=== PATIENT | male | born 1990 ===

== ENCOUNTER 2020-12-30 04:42 | Inpatient (IN) | payer OTHER ==
[2020-12-30] MEDS ORDERED: FAMOTIDINE 20 MG/2 ML INJ IV ONE (05:27)
[2020-12-30] MEDS ORDERED: SODIUM CHLORIDE 0.9% 1000 ML 1,000 ML IV ONE (05:27)
[2020-12-30] MEDS ORDERED: MORPHINE 4 MG/1 ML INJ IV ONE (05:27)
[2020-12-30] MEDS ORDERED: ONDANSETRON 4 MG/2 ML INJ IV ONE (05:27)
[2020-12-30 05:48] LABS: Basophils # (Auto) 0.1 K/mm3 (0.0-0.1); Basophils % (Auto) 0.5 % (0.0-1.8); Eosinophils # (Auto) 0.1 K/mm3 (0.0-0.4); Eosinophils % (Auto) 0.9 % (0.0-4.3); Hematocrit 45.2 % (35.5-45.6); Hemoglobin 15.3 gm/dl (11.8-15.2); Lymphocytes # (Auto) 3.1 K/mm3 (1.2-5.4); Lymphocytes % (Auto) 24.1 % (13.4-35.0); Mean Corpuscular HGB Conc 34 % (32-34); Mean Corpuscular Volume 93 fl (84-94); Monocytes % (Auto) 7.9 % (0.0-7.3); Platelet Count 286 K/mm3 (140-440); Red Blood Count 4.87 M/mm3 (3.65-5.03); Red Cell Distribution Width 13.5 % (13.2-15.2)
[2020-12-30 05:59] LABS: Alanine Aminotransferase 23 units/L (7-56); Albumin 4.3 g/dL (3.9-5); BUN/Creatinine Ratio 12; Blood Urea Nitrogen 12 mg/dL (9-20); Calcium 9.1 mg/dL (8.4-10.2); Hemolysis Index 14
--- NOTE | 2020-12-30 06:11 | Emergency Department Report ---
<SANDRAWILSON MUSE - Last Filed: 12/30/20 07:07> ED Abdominal Pain HPI - General Chief Complaint: Abdominal Pain Stated Complaint: RIGHT SIDE PAIN Source: patient Mode of arrival: Ambulatory Limitations: No Limitations - History of Present Illness Initial Comments: Patient is a 30-year-old male with past medical history of GERD who presents to the ED with complaint of acute onset persistent severe right upper quadrant pain with intractable nausea and vomiting for the last 2 days. Patient states that in the last 6 hours, the pain has been constant, persistent and severe and that food appears to make the pain worse. Patient states that in the last 6 hours he has had 2 episodes of nausea and vomiting the last time which was while in the ED. Patient denies fever, chills, diarrhea, dysuria, urinary frequency and urgency, cough, hematemesis, hematochezia, sore throat, hematuria, dysuria, testicular pain, urinary frequency and urgency, chest pain or shortness of breath or headache. MD Complaint: abdominal pain, other -: Sudden (Nausea and vomiting), days(s) (2) Location: RUQ Radiation: RUQ Migration to: no migration Severity: severe Severity scale (0 -10): 10 Quality: cramping, aching, sharp Consistency: constant Improves With: nothing Worsens With: eating, vomiting, movement Associated Symptoms: denies other symptoms, nausea, vomiting, anorexia. denies: diarrhea, fever, chills, constipation, dysuria, hematemesis, hematochezia, me leslie, hematuria - Related Data Allergies Allergy/AdvReac Type Severity Reaction Status Date / Time No Known Allergies Allergy Unverified 12/30/20 04:52 ED Review of Systems Constitutional: denies: chills, fever Eyes: denies: eye pain, eye discharge, vision change ENT: denies: ear pain, throat pain Respiratory: denies: cough, shortness of breath, wheezing Cardiovascular: denies: chest pain, palpitations Endocrine: no symptoms reported Gastrointestinal: abdominal pain (RUQ Abdominal pain), nausea, vomiting. denies: diarrhea Genitourinary: denies: urgency, dysuria Musculoskeletal: denies: back pain, joint swelling, arthralgia Skin: denies: rash, lesions Neurological: denies: headache, weakness, paresthesias Psychiatric: denies: anxiety, depression Hematological/Lymphatic: denies: easy bleeding, easy bruising ED Past Medical Hx - Past Medical History Previous Medical History?: No - Surgical History Past Surgical History?: No - Social History Smoking Status: Never Smoker Substance Use Type: Alcohol ED Physical Exam - General Limitations: No Limitations General appearance: alert, in no apparent distress - Head Head exam: Present: atraumatic, normocephalic, normal inspection - Eye Eye exam: Present: normal appearance, PERRL, EOMI Pupils: Present: normal accommodation - ENT ENT exam: Present: normal exam, normal orophraynx, mucous membranes moist, TM's normal bilaterally, normal external ear exam - Neck Neck exam: Present: normal inspection, full ROM - Respiratory Respiratory exam: Present: normal lung sounds bilaterally. Absent: respiratory distress, wheezes, rales, rhonchi, chest wall tenderness, accessory muscle use, prolonged expiratory - Cardiovascular Cardiovascular Exam: Present: normal rhythm, bradycardia, normal heart sounds. Absent: systolic murmur, diastolic murmur, rubs, gallop - GI/Abdominal GI/Abdominal exam: Present: soft, tenderness (Palpable right upper quadrant tenderness with a positive Liu sign), guarding, rebound, normal bowel sounds. Absent: hyperactive bowel sounds, hypoactive bowel sounds - Extremities Exam Extremities exam: Present: normal inspection, full ROM, normal capillary refill - Back Exam Back exam: Present: normal inspection, full ROM. Absent: tenderness, CVA tenderness (R), CVA tenderness (L), muscle spasm, paraspinal tenderness, vertebral tenderness - Neurological Exam Neurological exam: Present: alert, oriented X3, CN II-XII intact, normal gait, reflexes normal - Psychiatric Psychiatric exam: Present: normal affect, normal mood - Skin Skin exam: Present: warm, dry, intact, normal color. Absent: rash ED Medical Decision Making - Lab Data Result diagrams: 12/30/20 04:56 12/30/20 04:56 - Radiology Data Radiology results: report reviewed, image reviewed - Medical Decision Making This is a 30-year-old male with past medical history of GERD who presents to the ED with complaint of acute onset persistent severe right upper quadrant pain with intractable nausea and vomiting for the last 2 days. Patient states that in the last 6 hours, the pain has been constant, persistent and severe and that food appears to make the pain worse. Patient states that in the last 6 hours he has had 2 episodes of nausea and vomiting the last time which was while in the ED. in the ED, patient is alert and oriented x3 and is not in any distress. Patient was treated in the ED for pain and also given antacids and antiemetics as well as normal saline 1 L IV bolus x1. Lab test results were reviewed and showed acute leukocytosis of 12,700. The rest of the lab test results were nonactionable. The gallbladder ultrasound and abdomen pelvis CT scan with contrast reports are pending. Patient is hemodynamically stable at this time. Patient care was transferred to Ms. Jose Ramon ARTEAGA at shift change at 0700 hours. She shall review all imaging reports and disposition the patient accordingly. - Differential Diagnosis Gallstones; cholecystitis; GERD; kidney stones; UTI; gastritis; pancreatiti ED Disposition Clinical Impression: Cholecystitis with cholelithiasis Qualifiers: Cholelithiasis location: gallbladder Cholecystitis acuity: acute Biliary obstruction: without biliary obstruction Qualified Code(s): K80.00 - Calculus of gallbladder with acute cholecystitis without obstruction Disposition: OP ADMIT IP TO THIS HOSP Is pt being admited?: No Does the pt Need Aspirin: No Condition: Stable Referrals: PRIMARY CARE, [Primary Care Provider] - 3-5 Days <JOSE RAMON BOYD - Last Filed: 12/30/20 09:23> ED Review of Systems ROS: Stated complaint: RIGHT SIDE PAIN Other details as noted in HPI ED Course Vital Signs 12/30/20 12/30/20 12/30/20 04:53 05:00 05:48 Temperature 98.2 F Pulse Rate 54 L Respiratory 18 20 Rate Blood Pressure 141/81 [Left] O2 Sat by Pulse 96 Oximetry 12/30/20 07:35 Temperature Pulse Rate Respiratory 16 Rate Blood Pressure [Left] O2 Sat by Pulse Oximetry - Reevaluation(s) Reevaluation #1: 12/30/20 08:15 Patient reports abdominal pain he is in no acute distress 4 mg of morphine ordered. CT results pending Reevaluation #2: 12/30/20 09:00 General surgeon on-call is called and notified of patient results. Dr. Tom mckenna request patient to be admitted to medicine and that she will be in to see patient later today she also suggest patient be started on IV antibiotics. Reevaluation #3: 12/30/20 09:18 Dr. Ortega called and notified of of patient patient to be admitted by Dr. Ortega to Dr. Sarkar service ED Medical Decision Making - Lab Data Result diagrams: 12/30/20 04:56 12/30/20 04:56 - Radiology Data CT ABDOMEN AND PELVIS WITH CONTRAST INDICATION / CLINICAL INFORMATION: Right upper quadrant abdominal pain for 2 days. TECHNIQUE: Axial CT images were obtained through the abdomen and pelvis following the administration of intravenous contrast. All CT scans at this location are performed using CT dose reduction for ALARA by means of automated exposure control. COMPARISON: Right upper quadrant ultrasound from the same day. FINDINGS: LOWER CHEST: No significant abnormality. LIVER: Mild periportal edema. No focal hepatic lesion. GALLBLADDER: There is cholelithiasis with moderately thickened gallbladder wall trace pericholecystic inflammatory change. PANCREAS: No significant abnormality. SPLEEN: No significant abnormality. ADRENALS: No significant abnormality. KIDNEYS / URETERS: No significant abnormality. URINARY BLADDER: No significant abnormality. REPRODUCTIVE ORGANS: No significant abnormality. STOMACH / SMALL BOWEL: No significant abnormality. COLON: No significant abnormality. APPENDIX: No significant abnormality. PERITONEUM: No free fluid. No free air. No fluid collection. LYMPH NODES: No significant adenopathy. AORTA / ARTERIES: No significant abnormality. IVC / VEINS: No significant abnormality. SKELETAL SYSTEM: No significant abnormality. ADDITIONAL FINDINGS: None. IMPRESSION: 1. Cholelithiasis with gallbladder wall thickening is suspicious for cholecystitis. 2. Mild periportal edema may be related to aggressive hydration. - Medical Decision Making CT results shows cholelithiasis with gallbladder wall thickening suspicious for cholecystitis this. I discussed findings with general surgeon Dr. Purvis patient is to be admitted to the medicine service and Dr. Purvis will be in to see patient today. I also spoke to Dr. Viveros patient will be admitted to medicine service Dr. Sarkar. Patient prescribed IV Zosyn. Plan of care discus sed with patient he agrees with being admitted. Patient is currently in no acute distress Critical care attestation.: If time is entered above; I have spent that time in minutes in the direct care of this critically ill patient, excluding procedure time. ED Disposition Is pt being admited?: Yes Does the pt Need Aspirin: No Time of Disposition: 09:23
[2020-12-30 06:27] LABS: Amorphous Crystals,Urine 2+; Bacteria,Urine 1+ /HPF (Negative); Bilirubin,Urine NEG (Negative); Blood,Urine NEG (Negative); Color,Urine Yellow (Yellow); Urobilinogen,Urine < 2.0 mg/dL (<2.0)
--- NOTE | 2020-12-30 07:17 | Ultrasound Report ---
US abdomen limited INDICATION / CLINICAL INFORMATION: RUQ Pain. COMPARISON: None available. FINDINGS: Liver is mildly enlarged, and echogenicity is slightly increased, suggesting fatty infiltration. Gall bladder contains a single large stone, and the gallbladder wall is slightly thickened. Common duct is normal in size. IMPRESSION: 1. Cholelithiasis with thickened gallbladder wall, suggesting cholecystitis. 2. Probable hepatic steatosis. Signer Name: Chirstiano Gallagher MD Signed: 12/30/2020 7:13 AM Workstation Name: [id number]
[2020-12-30] MEDS ORDERED: MORPHINE 4 MG/1 ML INJ IM ONE (07:59)
--- NOTE | 2020-12-30 08:09 | Cat Scan Report ---
CT ABDOMEN AND PELVIS WITH CONTRAST INDICATION / CLINICAL INFORMATION: Right upper quadrant abdominal pain for 2 days. TECHNIQUE: Axial CT images were obtained through the abdomen and pelvis following the administration of intraven ous contrast. All CT scans at this location are performed using CT dose reduction for ALARA by means of automated exposure control. COMPARISON: Right upper quadrant ultrasound from the same day. FINDINGS: LOWER CHEST: No significant abnormality. LIVER: Mild periportal edema. No focal hepatic lesion. GALLBLADDER: There is cholelithiasis with moderately thickened gallbladder wall trace pericholecystic inflammatory change. PANCREAS: No significant abnormality. SPLEEN: No significant abnormality. ADRENALS: No significant abnormality. KIDNEYS / URETERS: No significant abnormality. URINARY BLADDER: No significant abnormality. REPRODUCTIVE ORGANS: No significant abnormality. STOMACH / SMALL BOWEL: No significant abnormality. COLON: No significant abnormality. APPENDIX: No significant abnormality. PERITONEUM: No free fluid. No free air. No fluid collection. LYMPH NODES: No significant adenopathy. AORTA / ARTERIES: No significant abnormality. IVC / VEINS: No significant abnormality. SKELETAL SYSTEM: No significant abnormality. ADDITIONAL FINDINGS: None. IMPRESSION: 1. Cholelithiasis with gallbladder wall thickening is suspicious for cholecystitis. 2. Mild periportal edema may be related to aggressive hydration. Signer Name: Benny Giron MD Signed: 12/30/2020 8:04 AM Workstation Name: [id number]
[2020-12-30] MEDS ORDERED: PIPERACILLIN/TAZOBACTAM 3.375 3.375 GM/50 ML BAG IV ONE (09:14)
[2020-12-30] MEDS ORDERED: MORPHINE 2 MG/1 ML INJ IV PRN (11:39)
[2020-12-30] MEDS ORDERED: ONDANSETRON 4 MG/2 ML INJ IV PRN (11:39)
--- NOTE | 2020-12-30 11:41 | History and Physical Report ---
History of Present Illness Date of examination: 12/30/20 Date of admission: 12/30/20 09:24 Chief complaint: Right upper quadrant pain History of present illness: 30-year-old with no significant past medical history presented to the emergency department with complaints of right upper quadrant pain that started yesterday. He said pinching pain, progressively getting worse and become 10 out of 10 in intensity, with no radiation. He has one episode of vomiting but no nausea. Denied any fever or chills. Patient said he drinks alcohol heavily on the weekends. Last drink was yesterday. Patient denied any similar abdominal pain before. In the emergency department patient had leukocytosis, vital signs were stable. CT abdomen and pelvis was done and suggestive of cholelithiasis with cholecystitis. Patient was placed on IV Zosyn and general surgery Dr. Purvis was consulted and she will see the patient today. Patient admitted to surgical floor for observation. REVIEW OF SYSTEMS: GENERAL: no weight change, no fatigue, no fever HEAD: no head ache EYES: no blurry vision, no acute visual loss EARS: no hearing loss, no discharge, no earache NOSE: no stuffiness, no sneezing, no discharge MOUTH, THROAT AND NECK: no bleeding gums, no sore throat, no swollen neck CARDIAC: no palpitations, no dyspnea on exertion, no orthopnea, no PND, no edema, no chest pain RESPIRATORY: no shortness of breath, no wheeze, no cough, no sputum, no hemoptysis, no asthma GI: no decreased appetite, no nausea, no vomiting, no dysphagia, no diarrhea, no constipation, no abdominal pain URINARY: No urgency, hematuria, dysuria or frequency. MUSCULOSKELETAL: no muscle weakness, no pain, no joint stiffness NEUROLOGIC: no loss of sensation/numbness, no tingling, no tremors, no weakness/paralysis HEMATOLOGIC: no anemia, no easy bruising SKIN: no rashes ENDOCRINE: no heat/cold intolerance, no polyuria, no polydipsia, no thyroid problems, no diabetes PSYCHIATRIC: no anxiety, no depression, no suicidal ideations Past History Past Medical History: No medical history, other (Alcohol abuse) Past Surgical History: No surgical history Social history: smoking (Smokes cigarettes half pack per day and smokes weed), alcohol abuse (He said he drinks hard liquor and beer on the weekends), full code. denies: prescription drug abuse, IV drug use Family history: no significant family history Medications and Allergies Allergies Allergy/AdvReac Type Severity Reaction Status Date / Time No Known Allergies Allergy Unverified 12/30/20 04:52 Active Meds: Active Medications Piperacillin Sod/Tazobactam Sod (Zosyn/Ns 3.375gm/50ml) 3.375 gm in 50 mls @ 100 mls/hr IV Q8H LUBNA; Protocol Morphine Sulfate (Morphine 2 Mg/1 Ml Inj) 2 mg IV Q4H PRN PRN Reason: Pain, Moderate (4-6) Ondansetron HCl (Ondansetron 4 Mg/2 Ml Inj) 4 mg IV Q6H PRN PRN Reason: N/V unrelieved by Reglan Exam - Physical Exam Narrative exam: Not in cardiopulmonary distress. The patient appeared well nourished and normally developed. Vital signs as documented. Head exam is unremarkable. No scleral icterus . Neck is without jugular venous distension, thyromegaly, or carotid bruits. Lungs are clear to auscultation. Cardiac exam reveals regular rate and Rhythm. Abdominal exam reveals right upper quadrant tenderness. Extremities are nonedematous and both femoral and pedal pulses are normal. ANIMAL HEALTH TECHNICIAN: Alert and oriented 3. No focal weakness. - Constitutional Vitals: Temp Pulse Resp BP Pulse Ox 97.5 F L 55 L 16 144/87 100 12/30/20 10:27 12/30/20 10:27 12/30/20 10:27 12/30/20 10:27 12/30/20 10:27 Results - Labs CBC & Chem 7: 12/30/20 04:56 12/30/20 04:56 Labs: Laboratory Last Values WBC 12.7 K/mm3 (4.5-11.0) H 12/30/20 04:56 RBC 4.87 M/mm3 (3.65-5.03) 12/30/20 04:56 Hgb 15.3 gm/dl (11.8-15.2) H 12/30/20 04:56 Hct 45.2 % (35.5-45.6) 12/30/20 04:56 MCV 93 fl (84-94) 12/30/20 04:56 MCH 32 pg (28-32) 12/30/20 04:56 MCHC 34 % (32-34) 12/30/20 04:56 RDW 13.5 % (13.2-15.2) 12/30/20 04:56 Plt Count 286 K/mm3 (140-440) 12/30/20 04:56 Lymph % (Auto) 24.1 % (13.4-35.0) 12/30/20 04:56 [place] % (Auto) 7.9 % (0.0-7.3) H 12/30/20 04:56 Eos % (Auto) 0.9 % (0.0-4.3) 12/30/20 04:56 Baso % (Auto) 0.5 % (0.0-1.8) 12/30/20 04:56 Lymph # (Auto) 3.1 K/mm3 (1.2-5.4) 12/30/20 04:56 [place] # (Auto) 1.0 K/mm3 (0.0-0.8) H 12/30/20 04:56 Eos # (Auto) 0.1 K/mm3 (0.0-0.4) 12/30/20 04:56 Baso # (Auto) 0.1 K/mm3 (0.0-0.1) 12/30/20 04:56 Seg Neutrophils % 66.6 % (40.0-70.0) 12/30/20 04:56 Seg Neutrophils # 8.5 K/mm3 (1.8-7.7) H 12/30/20 04:56 Sodium 140 mmol/L (137-145) 12/30/20 04:56 Potassium 4.2 mmol/L (3.6-5.0) 12/30/20 04:56 Chloride 102.1 mmol/L (98-107) 12/30/20 04:56 Carbon Dioxide 28 mmol/L (22-30) 12/30/20 04:56 Anion Gap 14 mmol/L 12/30/20 04:56 BUN 12 mg/dL (9-20) 12/30/20 04:56 Creatinine 1.0 mg/dL (0.8-1.3) 12/30/20 04:56 Estimated GFR > 60 ml/min 12/30/20 04:56 BUN/Creatinine Ratio 12 % 12/30/20 04:56 Glucose 133 mg/dL (75-100) H 12/30/20 04:56 Calcium 9.1 mg/dL (8.4-10.2) 12/30/20 04:56 Total Bilirubin 0.30 mg/dL (0.1-1.2) 12/30/20 04:56 AST 18 units/L (5-40) 12/30/20 04:56 ALT 23 units/L (7-56) 12/30/20 04:56 Alkaline Phosphatase 70 units/L (35-129) 12/30/20 04:56 Total Protein 7.3 g/dL (6.3-8.2) 12/30/20 04:56 Albumin 4.3 g/dL (3.9-5) 12/30/20 04:56 Albumin/Globulin Ratio 1.4 % 12/30/20 04:56 Lipase 40 units/L (13-60) 12/30/20 04:56 Urine Color Yellow (Yellow) 12/30/20 04:52 Urine Turbidity Turbid (Clear) 12/30/20 04:52 Urine pH 9.0 (5.0-7.0) H 12/30/20 04:52 Ur Specific [place] 1.014 (1.003-1.030) 12/30/20 04:52 Urine Protein 30 mg/dl mg/dL (Negative) 12/30/20 04:52 Urine Glucose (UA) Neg mg/dL (Negative) 12/30/20 04:52 Urine Ketones Neg mg/dL (Negative) 12/30/20 04:52 Urine Blood Neg (Negative) 12/30/20 04:52 Urine Nitrite Neg (Negative) 12/30/20 04:52 Urine Bilirubin Neg (Negative) 12/30/20 04:52 Urine Urobilinogen < 2.0 mg/dL (<2.0) 12/30/20 04:52 Ur Leukocyte Esterase Neg (Negative) 12/30/20 04:52 Urine WBC (Auto) 3.0 /HPF (0.0-6.0) 12/30/20 04:52 Urine RBC (Auto) 3.0 /HPF (0.0-6.0) 12/30/20 04:52 Urine Bacteria (Auto) 1+ /HPF (Negative) 12/30/20 04:52 Amorphous Crystals 2+ 12/30/20 04:52 Assessment and Plan Assessment and plan: Acute cholecystitis -Patient placed on IV antibiotic and general surgery consulted. -Pain control. Leukocytosis; due to the above DVT prophylaxis; SCDs because patient may need surgery Disposition; admit to surgical floor for observation. Advance Directives: Yes VTE prophylaxis?: Mechanical Reason for no VTE Prophylaxis: Surgical contraindication Plan of care discussed with patient/family: Yes
[2020-12-30 11:44] VITALS: BP 141/98
[2020-12-30] MEDS ORDERED: SODIUM CHLORIDE 0.9% 1000 ML 1,000 ML IV SCH (12:30)
[2020-12-30] MEDS ORDERED: KETOROLAC 30 MG/1 ML INJ IV PRN (13:00)
--- NOTE | 2020-12-30 13:00 | Consultation ---
History of Present Illness Consult date: 12/30/20 Reason for consult: gallstones - History of present illness History of present illness: 30 year old male presented to ED with a 2 day hx or worsening RUQ pain with nausea and vomiting. He denies ever having the pain before. He had an US that showed gallstones, and gallbladder wall thickening c/w cholecystitis. Currently he says his pain is about a 5/10 and improved compared to when he first came into the hospital. Past History Past Medical History: No medical history, other (Alcohol abuse) Past Surgical History: No surgical history Social history: smoking (Smokes cigarettes half pack per day and smokes weed), alcohol abuse (He said he drinks hard liquor and beer on the weekends), full code. denies: prescription drug abuse, IV drug use Family history: no significant family history Medications and Allergies Allergies Allergy/AdvReac Type Severity Reaction Status Date / Time No Known Allergies Allergy Unverified 12/30/20 04:52 Active Meds: Active Medications Piperacillin Sod/Tazobactam Sod (Zosyn/Ns 3.375gm/50ml) 3.375 gm in 50 mls @ 100 mls/hr IV Q8HR LUBNA; Protocol Sodium Chloride (Nacl 0.9% 1000 Ml) 1,000 mls @ 75 mls/hr IV DIRECT LUBNA Morphine Sulfate (Morphine 2 Mg/1 Ml Inj) 2 mg IV Q4H PRN PRN Reason: Pain, Moderate (4-6) Ondansetron HCl (Ondansetron 4 Mg/2 Ml Inj) 4 mg IV Q6H PRN PRN Reason: N/V unrelieved by Reglan Exam Vital Signs Temp Pulse Resp Pulse Ox 98.2 F 54 L 18 96 12/30/20 04:53 12/30/20 04:53 12/30/20 04:53 12/30/20 04:53 - General physical appearance Positive: well developed, no distress, no pain - Respiratory Positive: normal expansion, clear to percussion - Cardiovascular Heart Sounds: Present: S1 & S2 - Extremities Extremities: no ischemia - Abdomen Abdomen: Present: soft, other (tender to palpation RUQ). Absent: distended, guarding, rigid, wound Results - Labs 12/30/20 04:56 12/30/20 04:56 Abnormal lab results 12/30/20 12/30/20 12/30/20 Range/Units 04:52 04:56 04:56 WBC 12.7 H (4.5-11.0) K/mm3 Hgb 15.3 H (11.8-15.2) gm/dl [place] % (Auto) 7.9 H (0.0-7.3) % [place] # (Auto) 1.0 H (0.0-0.8) K/mm3 Seg Neutrophils # 8.5 H (1.8-7.7) K/mm3 Glucose 133 H (75-100) mg/dL Urine pH 9.0 H (5.0-7.0) Diabetes panel 12/30/20 Range/Units 04:56 Sodium 140 (137-145) mmol/L Potassium 4.2 (3.6-5.0) mmol/L Chloride 102.1 (98-107) mmol/L Carbon Dioxide 28 (22-30) mmol/L BUN 12 (9-20) mg/dL Creatinine 1.0 (0.8-1.3) mg/dL Glucose 133 H (75-100) mg/dL Calcium 9.1 (8.4-10.2) mg/dL AST 18 (5-40) units/L ALT 23 (7-56) units/L Alkaline Phosphatase 70 (35-129) units/L Total Protein 7.3 (6.3-8.2) g/dL Albumin 4.3 (3.9-5) g/dL Calcium panel 12/30/20 Range/Units 04:56 Calcium 9.1 (8.4-10.2) mg/dL Albumin 4.3 (3.9-5) g/dL Pituitary panel 12/30/20 Range/Units 04:56 Sodium 140 (137-145) mmol/L Potassium 4.2 (3.6-5.0) mmol/L Chloride 102.1 (98-107) mmol/L Carbon Dioxide 28 (22-30) mmol/L BUN 12 (9-20) mg/dL Creatinine 1.0 (0.8-1.3) mg/dL Glucose 133 H (75-100) mg/dL Calcium 9.1 (8.4-10.2) mg/dL Adrenal panel 12/30/20 Range/Units 04:56 Sodium 140 (137-145) mmol/L Potassium 4.2 (3.6-5.0) mmol/L Chloride 102.1 (98-107) mmol/L Carbon Dioxide 28 (22-30) mmol/L BUN 12 (9-20) mg/dL Creatinine 1.0 (0.8-1.3) mg/dL Glucose 133 H (75-100) mg/dL Calcium 9.1 (8.4-10.2) mg/dL Total Bilirubin 0.30 (0.1-1.2) mg/dL AST 18 (5-40) units/L ALT 23 (7-56) units/L Alkaline Phosphatase 70 (35-129) units/L Total Protein 7.3 (6.3-8.2) g/dL Albumin 4.3 (3.9-5) g/dL - Imaging US - abdomen: report reviewed, image reviewed Assessment and Plan 30 year old male with cholelithiasis/cholecystitis. Afebrile and stable. Pt is consented for lap blaire tomorrow. Continue abx, NPO after midnight.
[2020-12-30] MEDS ORDERED: PIPERACILLIN/TAZOBACTAM 3.375 3.375 GM/50 ML BAG IV SCH (14:00)
[2020-12-30] MEDS ORDERED: PANTOPRAZOLE 40 MG INJ IV SCH (14:00)
== END 2020-12-30 18:47 | disposition left against medical advice (07) | DRG 446 ==
LOC: ED 04:42 → 3B-SURG 09:24
PROVIDERS: ADMIT Internal Medicine; ATTEND Internal Medicine
DX: K80.00 Calculus of gallbladder with acute cholecystitis without obstruction (principal); K21.9 Gastro-esophageal reflux disease without esophagitis; D72.829 Elevated white blood cell count, unspecified; F17.210 Nicotine dependence, cigarettes, uncomplicated; F10.10 Alcohol abuse, uncomplicated
CPT/HCPCS: 36415; 74177; 76705; 80053; 81001; 83690; 85025; G0378; C9113; J2270; J2405; J2543; J7030; Q9967

== ENCOUNTER 2020-12-31 14:26 | Emergency (ER) | payer SELFPAY ==
[2020-12-31 15:06] VITALS: BP 129/63
[2020-12-31 16:28] LABS: Basophils # (Auto) 0.1 K/mm3 (0.0-0.1); Basophils % (Auto) 0.6 % (0.0-1.8); Eosinophils # (Auto) 0.2 K/mm3 (0.0-0.4); Eosinophils % (Auto) 1.7 % (0.0-4.3); Hematocrit 45.9 % (35.5-45.6); Hemoglobin 15.2 gm/dl (11.8-15.2); Lymphocytes # (Auto) 3.3 K/mm3 (1.2-5.4); Lymphocytes % (Auto) 36.3 % (13.4-35.0); Mean Corpuscular HGB Conc 33 % (32-34); Mean Corpuscular Volume 94 fl (84-94); Monocytes # (Auto) 0.7 K/mm3 (0.0-0.8); Monocytes % (Auto) 8.1 % (0.0-7.3); Platelet Count 293 K/mm3 (140-440); Red Blood Count 4.88 M/mm3 (3.65-5.03); Red Cell Distribution Width 13.9 % (13.2-15.2)
[2020-12-31 16:38] LABS: Alanine Aminotransferase 45 units/L (7-56); BUN/Creatinine Ratio 11; Blood Urea Nitrogen 11 mg/dL (9-20); Hemolysis Index 12
== END 2020-12-31 16:00 | disposition left against medical advice (07) ==
LOC: ED 14:26
DX: R10.9 Unspecified abdominal pain (principal); Z53.21 Procedure and treatment not carried out due to patient leaving prior to being seen by health care provider
CPT/HCPCS: 36415; 80053; 83690; 85025